=== PATIENT | female | born 1990 | race African-American/Black ===

== ENCOUNTER 2020-01-28 16:53 | Emergency (ER) | payer OTHER ==
[2020-01-28 17:04] VITALS: BP 142/97
--- NOTE | 2020-01-28 17:12 | ER Document Report ---
ED Neuro Symptoms/Deficit - General Chief Complaint: Numbness of Face Stated Complaint: NUMBNESS OF FACE Time Seen by Provider: 01/28/20 17:00 Notes: CHIEF COMPLAINT: Right facial numbness today HPI: 29-year-old female who is otherwise healthy presenting for right facial numbness that began around 1 PM today. States it started around the lips and she feels like her smile is irregular. No slurred speech. Had a headache 2 days ago no headache currently. No weakness numbness or tingling in the extremities. No chest pain shortness of breath. No fever or recent illness. No visual change or loss ROS: See HPI - all other systems were reviewed and are otherwise negative Constitutional: no fever Eyes: no drainage, no blurred vision ENT: no runny nose, no sore throat Cardiovascular: no chest pain Resp: no SOB, no cough GI: no vomiting, no diarrhea, no abdominal pain : no dysuria Integumentary: no rash Allergy: no hives Musculoskeletal: no extremity pain or swelling Neurological: + numbness/tingling, + weakness MEDICATIONS: I agree with the patient medications as charted by the RN. ALLERGIES: I agree with the allergies as charted by the RN. PAST MEDICAL HISTORY/PAST SURGICAL HISTORY: Reviewed and agree as charted by RN. SOCIAL HISTORY: Reviewed and agree as charted by RN. FAMILY HISTORY: No significant familial comorbid conditions directly related to patient complaint EXAM: Reviewed vital signs as charted by RN. CONSTITUTIONAL: Alert and oriented and responds appropriately to questions. Well-appearing; well-nourished HEAD: Normocephalic; atraumatic EYES: PERRL; Conjunctivae clear, sclerae non-icteric ENT: normal nose; no rhinorrhea; moist mucous membranes; pharynx without lesions noted, no uvula edema or deviation, no tonsillar hypertrophy, phonation normal NECK: Supple without meningismus; non-tender; no cervical lymphadenopathy, no masses CARD: Mild tachycardia; no murmurs, no clicks, no rubs, no gallops; symmetric distal pulses RESP: Normal chest excursion without splinting or tachypnea; breath sounds clear and equal bilaterally; no wheezes, no rhonchi, no rales, pulse oximetry 98% on room air not hypoxic ABD/GI: Normal bowel sounds; non-distended; soft, non-tender, no rebound, no guarding; no palpable organomegaly or masses. BACK: The back appears normal and is non-tender to palpation, there is no CVA tenderness EXT: Normal ROM in all joints; non-tender to palpation; no cyanosis, no e ffusions, no edema SKIN: Normal color for age and race; warm; dry; good turgor; no acute lesions noted NEURO: Moves all extremities equally; patient with no weakness numbness or tingling in the bilateral extremities upper and lower. Patient does seem to have facial droop on the right side very slight. There is no creasing of the right forehead with eyebrow raise. Patient is able to fully close both eyes. There does appear to be slight droop around the mouth on the right side. Sensation does appear intact in the forehead cheek and mandible. PSYCH: The patient's mood and manner are appropriate. Grooming and personal hygiene are appropriate. 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 She has no symptoms below the neck. She has some very mild right facial droop likely early Barton's palsy. No sensory change currently. Patient father also had Barton's palsy. Discussed at length with the patient. We will treat with steroids anti-viral's. Will refer to neurology. Patient was given very strict return precautions for headache, vision loss, symptoms below the neck had I do not believe imaging is needed at this time. Past Medical History - Social History Smoking Status: Unknown if Ever Smoked Family History: Reviewed & Not Pertinent Physical Exam - Vital signs Vitals: Temp Pulse Resp BP Pulse Ox 97.9 F 117 H 16 142/97 H 100 01/28/20 17:02 01/28/20 17:02 01/28/20 17:02 01/28/20 17:02 01/28/20 17:02 Course - Vital Signs Vital signs: Temp Pulse Resp BP Pulse Ox 97.9 F 117 H 16 142/97 H 100 01/28/20 17:02 01/28/20 17:02 01/28/20 17:02 01/28/20 17:02 01/28/20 17:02 - Laboratory Results Critical Laboratory Results Reviewed: No Critical Results - Radiology Results Critical Radiology Results Reviewed: No Critical Results Discharge - Discharge Clinical Impression: Barton's palsy Condition: Stable Disposition: HOME, SELF-CARE Instructions: Barton's Palsy ([facility]), Steroid Medication Additional Instructions: Take the medications as prescribed. Follow-up closely with neurology for further evaluation and treatment it is suspected that you have early Barton's palsy. You may see progression of some symptoms over the next 24 hours. If you develop any symptoms in the arms or legs please return for reevaluation as discussed Prescriptions: Prednisone [Deltasone 20 mg Tablet] 2 tab PO DAILY 5 Days #10 tablet Valacyclovir HCl [Valacyclovir] 1,000 mg PO TID #21 tablet Referrals: TAN TRIPP MD [[facility]ED STAFF] - Follow up as needed
[2020-01-28] MEDS ORDERED: VALACYCLOVIR HCL 500 MG TABLET PO ONE (17:13)
[2020-01-28] MEDS ORDERED: PREDNISONE 20 MG TABLET PO ONE (17:13)
== END 2020-01-28 17:33 | disposition home or self-care (01) ==
LOC: ER 16:53
DX: G51.0 Bell's palsy (principal); R20.0 Anesthesia of skin; R53.1 Weakness
CPT/HCPCS: 99283; J7512